=== PATIENT | male | born 1995 | race Caucasian/White ===

== ENCOUNTER 2017-08-28 20:02 | Emergency (ER) | payer MEDICAID | END 2017-08-29 00:47 | disposition home or self-care (01) | LOC: E/R 08-29 00:47 | DX: F10.129 Alcohol abuse with intoxication, unspecified (principal); R40.2122 Coma scale, eyes open, to pain, at arrival to emergency department; R40.2212 Coma scale, best verbal response, none, at arrival to emergency department; R40.2342 Coma scale, best motor response, flexion withdrawal, at arrival to emergency department | CPT/HCPCS: 36415; 99282 ==